=== PATIENT | male | born 1985 | race Caucasian/White ===

== ENCOUNTER 2017-05-20 08:53 | Emergency (ER) | payer SELFPAY ==
[~2017-05-20] VITALS: Ht 182.9 cm; Wt 115.0 kg
[2017-05-20 10:00] VITALS: BP 131/74
== END 2017-05-20 10:20 | disposition home or self-care (01) ==
LOC: ER 08:53
DX: H60.92 Unspecified otitis externa, left ear (principal); F17.200 Nicotine dependence, unspecified, uncomplicated
CPT/HCPCS: 99283